=== PATIENT | female | born 1980 | race Two or more races ===

== ENCOUNTER 2020-08-11 11:42 | Outpatient (REF) | payer MEDICAID, SELFPAY | END 2020-08-11 11:43 | disposition home or self-care (01) | LOC: HO.LAB 11:42 | PROVIDERS: Visit Provider Internal Medicine | DX: Z20.822 Contact with and (suspected) exposure to COVID-19 (principal) | CPT/HCPCS: 36415; C9803; U0003; U0005 ==

== ENCOUNTER 2022-05-17 14:59 | Emergency (ER) | payer OTHER, MEDICAID, SELFPAY ==
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
[2022-05-17 15:48] VITALS: BP 146/80; PULSE 74; RESP 18; TEMP 36.4; O2SAT 98; BMI 32.9
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
[2022-05-17] MEDS: Ketorolac Tromethamine 15 MG/ML VIAL IM (17:23)
[2022-05-17] MEDS: Cyclobenzaprine HCl 5 MG TABLET PO (17:23)
== END 2022-05-17 17:36 | disposition home or self-care (01) ==
PROVIDERS: Emergency Provider Emergency Medicine Emergency Medical Services
DX: M54.2 Cervicalgia (principal); R51.9 Headache, unspecified; M54.6 Pain in thoracic spine; M54.50 Low back pain, unspecified
CPT/HCPCS: 70450; 72070; 72100; 72125; 96372; 99283; 99284; J1885

== ENCOUNTER 2023-01-27 11:54 | Emergency (ER) | payer OTHER, SELFPAY ==
[2023-01-27 12:14] VITALS: BP 155/107; PULSE 77; RESP 18; TEMP 36.8; O2SAT 99; BMI 33.3
--- NOTE | 2023-01-27 12:14 | ECG_ITS ---
Test Reason : L ARM PAIN Blood Pressure : / mmHG Vent. Rate : 067 BPM Atrial Rate : 067 BPM P-R Int : 146 ms QRS Dur : 078 ms QT Int : 392 ms P-R-T Axes : 063 042 026 degrees QTc Int : 414 ms Normal sinus rhythm Normal ECG No previous ECGs available Referred By: Elvia Campo Electronically Signed By:AILYN PRIEOT MD
--- NOTE | 2023-01-27 12:14 | ED.SKABFB ---
HPI - Skin/Abscess/Foreign Bdy General Chief complaint: General Medical Stated complaint: L Side Pain No Injury Related Data Previous Rx's Medication Instructions Recorded cyclobenzaprine 5 mg tablet 5 mg PO TID PRN neck pain 7 days 05/17/22 #21 tabs ibuprofen 600 mg tablet 600 mg PO Q8H PRN pain #30 tabs 01/28/23 Allergies Allergy/AdvReac Type Severity Reaction Status Date / Time No Known Allergies Allergy Verified 05/17/22 15:51 PMFSH Social History Social History Advance Directives: No Advance Directives Information Provided: Yes Physical Exam Vital Signs: Vital Signs: Last Vital Signs Temp 98.3 F 01/27/23 12:14 Pulse 77 01/27/23 12:14 Resp 18 01/27/23 12:14 BP 155/107 H 01/27/23 12:14 Pulse Ox 99 01/27/23 12:14 O2 Del Method Room Air 01/27/23 12:14 BMI result Body Mass Index 33.3 Course Course Course Narrative: RME: 42yo F w/PMHx breast CA s/p radiation c/o painful L breast lump x 1 week. Admits had outpatient US at [facility] which was unremarkable last week, however, w/worsening pain radiating to L arm and back. State she was not given a Dx last week EKG ordered Area not evaluated in triage Full HPI, ROS and PE to be performed by primary ED provider. Discharge Plan Discharge Clinical Impression: Pain in scapula Patient Disposition: Elopement Prescriptions: No Action cyclobenzaprine 5 mg tablet 5 mg PO TID PRN (Reason: neck pain) 7 Days Qty: 21 0RF ibuprofen 600 mg tablet 600 mg PO Q8H PRN (Reason: pain) Qty: 30 0RF Interventions: ED Discharge Assessment Last Done: 01/27/23 20:01 Discharge Date/Time: 01/27/23 20:32
== END 2023-01-27 20:32 | disposition left against medical advice (07) ==
LOC: HO.ED 20:10
PROVIDERS: Emergency Provider Emergency Medicine
DX: M25.512 Pain in left shoulder (principal); Z85.3 Personal history of malignant neoplasm of breast
CPT/HCPCS: 93005; 99283

== ENCOUNTER → 2023-01-27 12:14 | Outpatient (BNV) | payer OTHER, SELFPAY | PROVIDERS: Visit Provider Internal Medicine Cardiovascular Disease | DX: M79.602 Pain in left arm (principal) | CPT/HCPCS: 93010 ==

== ENCOUNTER 2023-01-28 09:02 | Emergency (ER) | payer OTHER, SELFPAY ==
--- NOTE | ~2023-01-28 | CT_ITS ---
EXAMINATION: CT ANGIOGRAM OF THE CHEST WITH AND WITHOUT CONTRAST (CT PULMONARY ANGIOGRAM FOR PE) CLINICAL INFORMATION: Rule out pulmonary embolus. COMPARISON: None available. TECHNIQUE: Prior to contrast administration, noncontrast localization images were obtained. Subsequently, multidetector volumetric imaging was performed from the thoracic inlet to below the diaphragms following the administration of 65 mL Omnipaque 350 intravenous contrast. No contrast reaction reported Sagittal, coronal, and MIP oblique sagittal reformatted images were obtained on the CT workstation, uploaded to PACS, and reviewed. This CT examination was performed using dose optimization techniques as appropriate, variously including the following: *Automated exposure control *Adjustment of mA and/or kV according to patient size (this includes techniques or standardized protocols for targeted exams where dose is matched to indication/reason for exam; i.e. extremities or head) *Use of iterative reconstruction technique Total exam dose-length product: 278 mGy-cm FINDINGS: QUALITY OF STUDY/CONTRAST BOLUS: Satisfactory. PULMONARY ARTERIES: No pulmonary emboli. THORACIC AORTA: No aneurysm. LUNG: There is minimal lingular scarring or subsegmental atelectasis. The lungs are otherwise clear. PLEURA: No pleural effusion or pneumothorax. MEDIASTINUM: Normal heart size. No pericardial effusion. No hilar or mediastinal lymphadenopathy. No evidence of septal bowing or right heart strain. CORONARY ARTERY CALCIFICATION: None visualized on this study. CHEST WALL/AXILLA: No axillary or internal mammary lymphadenopathy. OSSEOUS STRUCTURES: No acute or suspicious osseous abnormality. UPPER ABDOMEN: Unremarkable. No reflux of contrast into the hepatic veins to suggest elevated right heart pressures. CT/CT angio chest PE protocol IMPRESSION: No evidence for pulmonary embolism. No active cardiopulmonary disease. VTE: negative
--- NOTE | ~2023-01-28 | XR_ITS ---
EXAMINATION: XR CHEST CLINICAL INFORMATION: Chest pain COMPARISON: None available. TECHNIQUE: 2 views of the chest were obtained. FINDINGS: No significant abnormality is noted involving the heart, lungs, mediastinum, bony thorax or soft tissues. XR/XR chest 2V IMPRESSION: Unremarkable examination.
--- NOTE | 2023-01-28 09:04 | ECG_ITS ---
Test Reason : cp Blood Pressure : / mmHG Vent. Rate : 069 BPM Atrial Rate : 069 BPM P-R Int : 140 ms QRS Dur : 080 ms QT Int : 390 ms P-R-T Axes : 038 023 017 degrees QTc Int : 417 ms Normal sinus rhythm Cannot rule out Anterior infarct , age undetermined Abnormal ECG When compared with ECG of 27-JAN-2023 12:31, No significant change was found Referred By: Generic ED Physician Electronically Signed By:PAULA OCHOA
[2023-01-28 09:12] VITALS: BP 139/87; PULSE 68; RESP 18; TEMP 36.7; O2SAT 98; BMI 35.9
[2023-01-28 09:25] LABS: MANUAL DIFF FLAG NO
[2023-01-28 09:26] LABS: Basophils Percent Auto 0.5 % (0-2); Eosinophils Absolute Auto 0.4 X10*3/uL (0.0-0.4); Eosinophils Percent Auto 4.6 % (0-4); Hematocrit 43.4 % (37.0-47.0); Hemoglobin 14.5 g/dl (12.0-16.0); Imm Gran Abs Auto 0.03 X10*3/uL (0.00-0.03); Imm Gran Pct Auto 0.4 % (0.0-0.4); Lymphocytes Absolute Auto 1.5 X10*3/uL (1.2-4.9); Lymphocytes Percent Auto 17.8 % (20-40); Mean Corpuscular HGB Conc 33.4 g/dl (31.0-35.0); Mean Corpuscular Hemoglobin 31.4 pg (27.0-33.0); Mean Corpuscular Volume 93.9 fL (80.0-98.0); Mean Platelet Volume 8.3 fL (9.4-12.3); Monocytes Absolute Auto 0.6 X10*3/uL (0.1-1.2); Monocytes Percent Auto 7.5 % (2-11); Neutrophils Absolute Auto 5.8 x10*3/uL (2.0-8.3); Neutrophils Percent Auto 69.2 % (45-73); Platelet Count 338 X10*3/uL (160-400); Red Blood Count 4.62 X10*6/uL (4.20-5.50); Red Cell Distribution Width 11.9 % (11.0-16.0); White Blood Count 8.4 X10*3/uL (4.8-10.8)
[2023-01-28 09:42] LABS: Anion Gap 11 (12-20); Blood Urea Nitrogen 14 mg/dL (9-16); Calcium 9.9 mg/dL (8.4-10.2); Carbon Dioxide 27 mmol/L (22-29); Chloride 104 mmol/L (96-108); Creatinine Clr Calc Pharmacy 87.9; Estimated Glomerular Filt Rate > 60; Glucose Random 110 mg/dL (60-115); Sodium 138 mmol/L (135-145)
[2023-01-28 09:52] LABS: Troponin-I High Sensitivity 4.1 ng/L (<3.5-17.0)
--- NOTE | 2023-01-28 11:15 | ED_ITS ---
HPI - Chest Pain General Chief Complaint: Chest Pain Stated Complaint: stabbing L side chest pain Time Seen by Provider: 01/28/23 13:41 Source: patient, RN notes reviewed and old records reviewed Mode of arrival: ambulatory Limitations: no limitations History of Present Illness HPI narrative: 42 year old female w/ pmhx significant for Breast CA not currently on chemo presents to the ED complaining of stabbing left mid back pain that radiates around to left axillary region x 1 mos. Admits pain worse with movement, lying, and deep breathing. Denies any relieving factors, fever, chills, nausea, vomiting, dizziness, & chest pain. She is currently nicotine dependent. She states she followed up w/ her oncologist recently & had ultrasound and recent mammogram & was told the pain wasn't breast related, and was more likely to be infectious in origin. denies nipple discharge, bleeding, palpable lump Related Data Previous Rx's Medication Instructions Recorded cyclobenzaprine 5 mg tablet 5 mg PO TID PRN neck pain 7 days 05/17/22 #21 tabs ibuprofen 600 mg tablet 600 mg PO Q8H PRN pain #30 tabs 01/28/23 Allergies Allergy/AdvReac Type Severity Reaction Status Date / Time No Known Allergies Allergy Verified 05/17/22 15:51 Review of Systems Review of Systems: Constitutional: No Fever, No Chills, No Fatigue, ENT/Mouth: No Hearing loss, No Ear Pain, No Nasal Congestion, No Sinus Pain, No Hoarseness, No sore throat, Eyes: No Eye Pain, No Swelling, No Redness Cardiovascular: (+) SOB, No Chest Pain, No Dyspnea on Exertion, No Orthopnea, No Palpitations Respiratory: (+) Cough, No Sputum, No Dyspnea Gastrointestinal: No Nausea, No Vomiting, No Diarrhea, No Constipation, No abdominal pain Genitourinary: No irregular bleeding, No Dysuria, No Urinary Frequency, No Hematuria Musculoskeletal: (+) pain to the left scapular area, (+) Left axilla pain Skin/breast: No Skin Lesions, No rash, No breast pain, No nipple discharge, No breast lumps, No breast swelling Neuro: (+) Headache, No Weakness, NNo Dizziness Yes all other systems are reviewed and are negative Constitutional: Constitutional: Reports as per [facility] Past Medical History Attestation statement: The following information was validated with the patient. Source: old records reviewed Social History Social History Advance Directives: No Advance Directives Information Provided: Yes Physical Exam Vital Signs: Vital Signs: Last Vital Signs Temp 98.8 F 01/28/23 14:58 Pulse 62 01/28/23 14:58 Resp 18 01/28/23 14:58 BP 151/89 H 01/28/23 14:58 Pulse Ox 100 01/28/23 14:58 O2 Del Method Room Air 01/28/23 14:58 BMI result Body Mass Index 35.9 Const: General: cooperative, healthy appearing, no acute distress and alert Orientation/consciousness: patient oriented x3 Limitations: no limitations HEENT: Head: Yes normal to inspection and Yes atraumatic Ears: hearing grossly normal bilaterally General nose exam: Normal external nose present Face and sinus: Yes normal facial exam Eyes: General: appearance normal, both eyes and all related structures Pupils: Equal, round and reactive pupils present EOM: EOMs intact bilaterally Neck: Neck: Yes normal visual inspection and Yes no meningeal signs Chest: Chest palpation & inspection: normal inspection of the chest (Old scars from prior breast surgery present), normal palpation of entire chest wall, no cr epitus, no masses, no sinus tracts, no tenderness and No rash Breast/axilla palpation: no axillary lymphadenopathy Resp: Effort & Inspection: normal respiratory effort and no respiratory distress Auscultation: clear to auscultation bilaterally and no wheezes Cardio: Rate: regular rate Heart sounds: S1 normal heart sound present and S2 normal heart sound present GI: Inspection: Yes normal to inspection Palpation (GI): Soft to palpation, nontender, no guarding and not rigid : General: Yes no CVA tenderness Back/Spine/Pelvis: Other: No midline cervical/thoracic/lumbar spinous tenderness/step-off or deformity. + reproducible tenderness to left scapular region extending to left lateral ribs. No ecchymosis/ erythema or flail chest. No rash Back: no CVA tenderness Skin: Rashes: no rashes Wounds: no wounds Neuro: General: patient oriented x3, tone normal and no meningeal signs Cranial nerves: Yes CN's II-XII intact bilaterally and Yes Equal, round and reactive pupils present Gait exam (Neuro): Normal gait present Extrem: General: Yes normal to inspection, Yes no pedal edema and Yes no calf tenderness Course Course Course Narrative: This is an RME: Additional HPI, ROS, PE not included below will be deferred to primary provider. 42 yo f hx of breast cancer s/p radiation presents w/ substernal cp w/ radiation to back worse w/ deep breathing. Reports grandfather had some cardiac hx unclear what however. No hx of sudden cardiac in family. Denies n/v/, tingling, numbness, abd pain Plan- labs, xray, dimer ( although patient is perc negative hx of breast cancer risk factor) - labs including troponin and D-dimer WNL. > Patient high risk will obtain CTA to rule out PE - chest x-ray unremarkable -1630-- ED care transferred to [facility] pending CTA and dispo per results Reevaluation(s) Reevaluation #1: CT/CT angio chest PE protocol IMPRESSION: No evidence for pulmonary embolism. ? No active cardiopulmonary disease. Pain at this time likely musculoskeletal in nature, discussed use of acetaminophen/ibuprofen and it addition to topical lidocaine. Advised outpatient follow-up with PCP within 1-3 days. Reviewed worrisome signs and symptoms that would warrant re-evaluation in the emergency department. All questions answered. Stable for discharge. Time: 18:03 Medications Administered Discontinued Medications Generic Name Dose Route Start Last Admin Trade Name Freq PRN Reason Stop Dose Admin Sodium Chloride 1,000 mls @ 999 mls/hr 01/28/23 15:00 01/28/23 14:57 Ns IV 01/28/23 16:00 999 mls/hr .Q1H1M ROSS Administration Iohexol 100 ml 01/28/23 16:28 01/28/23 16:28 Iohexol 350 Mg/Ml 100 Ml Infus..Btl IV 01/28/23 16:29 65 ml ONCE ONE Administration Ketorolac Tromethamine 15 mg 01/28/23 14:49 01/28/23 14:55 Ketorolac Tromethamine 15 Mg/Ml Vial IVPUSH 01/28/23 14:50 15 mg ONCE ONE Administration Medical Decision Making Medical Decision Making MDM Narrative: 42 year old female w/ pmhx significant for Breast CA not currently on chemo presents to the ED complaining of stabbing left mid back pain that radiates around to left axillary region x 1 mos. On exam VSS, NAD, PE as above, lungs CTA, pain reproducible without evidence of deformity or flail chest/rash.. Given her history of Breast Ca and nicotine dependence concern for PE vs MSK pain vs ?PNA. Unlikely ACS with duration of her symptoms. lower suspicion for pancreatitis, hepatobilliary condition, or aortic dissection. Plan: labs, x-ray, EKG, CTA, pain management Please refer to course for remaining clinical decision making, interpretation of labs/imaging results, and discussions with consultants and/or family members. Differential Diagnosis Differential Diagnoses: The differential diagnosis associated with the presentation includes As above Admission/Observation Consideration of admission/observation: Escalation of care including admission/observation considered Lab Data MDM Lab Attestation statement: I reviewed the patient's lab results. 01/28/23 09:19 01/28/23 09:19 Labs: Lab Results 01/28/23 01/28/23 01/28/23 Range/Units 09:19 09:19 09:19 WBC 8.4 (4.8-10.8) X10*3/uL RBC 4.62 (4.20-5.50) X10*6/uL Hgb 14.5 (12.0-16.0) g/dl Hct 43.4 (37.0-47.0) % MCV 93.9 (80.0-98.0) fL MCH 31.4 (27.0-33.0) pg MCHC 33.4 (31.0-35.0) g/dl RDW 11.9 (11.0-16.0) % Plt Count 338 (160-400) X10*3/uL MPV 8.3 L (9.4-12.3) fL Immature Gran % (Auto) 0.4 (0.0-0.4) % Neut % (Auto) 69.2 (45-73) % Lymph % (Auto) 17.8 L (20-40) % [place] % (Auto) 7.5 (2-11) % Eos % (Auto) 4.6 H (0-4) % Baso % (Auto) 0.5 (0-2) % Lymph # (Auto) 1.5 (1.2-4.9) X10*3/uL [place] # (Auto) 0.6 (0.1-1.2) X10*3/uL Eos # (Auto) 0.4 (0.0-0.4) X10*3/uL Baso # (Auto) 0.0 (0.0-0.2) X10*3/uL Abs Immat Gran (auto) 0.03 (0.00-0.03) X10*3/uL Absolute Neuts (auto) 5.8 (2.0-8.3) x10*3/uL Absolute Nucleated RBC 0.000 (0.0-0.012) X10*3/uL Nucleated RBC % (auto) 0.0 (0.0-0.2) /100WBC D-Dimer High Sensitivty NG/ML Sodium 138 (135-145) mmol/L Potassium 4.0 (3.3-5.1) mmol/L Chloride 104 (96-108) mmol/L Carbon Dioxide 27 (22-29) mmol/L Anion Gap 11 L (12-20) BUN 14 (9-16) mg/dL Creatinine 0.84 (0.5-1.4) mg/dL Estim Creat Clear Calc 87.9 Estimated GFR > 60 Random Glucose 110 (60-115) mg/dL Calcium 9.9 (8.4-10.2) mg/dL Total Bilirubin 0.4 (0.0-1.0) mg/dL Direct Bilirubin 0.2 (0.0-0.5) mg/dL AST 29 (5-31) U/L ALT 33 H (0-31) U/L Alkaline Phosphatase 63 (39-117) U/L Troponin I High Sens 4.1 (<3.5-17.0) ng/L Total Protein 8.3 H (6.5-8.0) g/dL Albumin 4.2 (3.5-5.0) g/dL Lipase 23 (8-78) U/L 01/28/23 01/28/23 Range/Units 12:01 12:01 WBC (4.8-10.8) X10*3/uL RBC (4.20-5.50) X10*6/uL Hgb (12.0-16.0) g/dl Hct (37.0-47.0) % MCV (80.0-98.0) fL MCH (27.0-33.0) pg MCHC (31.0-35.0) g/dl RDW (11.0-16.0) % Plt Count (160-400) X10*3/uL MPV (9.4-12.3) fL Immature Gran % (Auto) (0.0-0.4) % Neut % (Auto) (45-73) % Lymph % (Auto) (20-40) % [place] % (Auto) (2-11) % Eos % (Auto) (0-4) % Baso % (Auto) (0-2) % Lymph # (Auto) (1.2-4.9) X10*3/uL [place] # (Auto) (0.1-1.2) X10*3/uL Eos # (Auto) (0.0-0.4) X10*3/uL Baso # (Auto) (0.0-0.2) X10*3/uL Abs Immat Gran (auto) (0.00-0.03) X10*3/uL Absolute Neuts (auto) (2.0-8.3) x10*3/uL Absolute Nucleated RBC (0.0-0.012) X10*3/uL Nucleated RBC % (auto) (0.0-0.2) /100WBC D-Dimer High Sensitivty < 150 NG/ML Sodium (135-145) mmol/L Potassium (3.3-5.1) mmol/L Chloride (96-108) mmol/L Carbon Dioxide (22-29) mmol/L Anion Gap (12-20) BUN (9-16) mg/dL Creatinine (0.5-1.4) mg/dL Estim Creat Clear Calc Estimated GFR Random Glucose (60-115) mg/dL Calcium (8.4-10.2) mg/dL Total Bilirubin (0.0-1.0) mg/dL Direct Bilirubin (0.0-0.5) mg/dL AST (5-31) U/L ALT (0-31) U/L Alkaline Phosphatase (39-117) U/L Troponin I High Sens < 2.7 (<3.5-17.0) ng/L Total Protein (6.5-8.0) g/dL Albumin (3.5-5.0) g/dL Lipase (8-78) U/L Independent Interpretation I performed an independent interpretation of an: EKG ( EKG normal sinus rhythm at a rate of 69. QRS 80. QTC 417. No significant change when compared to prior) Radiology Impression Discussion of test interpretation with radiology: I have reviewed the radiologist's reading. External Record Review External record reviewed: Inpatient record, Office record, Outpatient record, Prior outpatient labs, Prior outpatient radiology, Primary care record and Outside ED record Tests considered The following testing was considered but not selected: As above Prescription Management I considered prescription management with: Pain Medication Chronic Conditions Patient?s care impacted by: Cancer Discharge Plan Discharge Clinical Impression: Pain of left scapula, SOB (shortness of breath) Patient Disposition: Home, Self-Care Additional Instructions: You can take ibuprofen 200 mg, 3 tablets (600mg) every 6-8 hours as needed for pain, in addition to Tylenol 500 mg, 2 tablets (1,000mg) every 4-6 hours as needed for pain, but not to exceed 3 doses daily (3,000mg).? Please contact your primary care provider and arrange for a follow-up visit within 1-3 days. You may return back to the emergency department any new or worsening symptoms or concerns. Prescriptions: New ibuprofen 600 mg tablet 600 mg PO Q8H PRN (Reason: pain) Qty: 30 0RF No Action cyclobenzaprine 5 mg tablet 5 mg PO TID PRN (Reason: neck pain) 7 Days Qty: 21 0RF Referrals: Physician,Unknown J [Primary Care Provider] -
[2023-01-28 12:22] LABS: D Dimer High Sensitivity < 150 NG/ML
[2023-01-28 12:26] LABS: Troponin-I High Sensitivity < 2.7 ng/L (<3.5-17.0)
[2023-01-28] MEDS: Ketorolac Tromethamine 15 MG/ML VIAL IVPUSH (14:55)
[2023-01-28] MEDS: 0.9 % Sodium Chloride 1,000 ML 999 ML IV (14:57)
[2023-01-28 14:58] VITALS: BP 151/89; PULSE 62; RESP 18; TEMP 37.1; O2SAT 100
[2023-01-28 15:12] LABS: Alanine Aminotransferase 33 U/L (0-31); Albumin Level 4.2 g/dL (3.5-5.0); Alkaline Phosphatase 63 U/L (39-117); Aspartate Amino Transferase 29 U/L (5-31); Bilirubin Direct 0.2 mg/dL (0.0-0.5); Bilirubin Total 0.4 mg/dL (0.0-1.0); Lipase 23 U/L (8-78); Total Protein 8.3 g/dL (6.5-8.0)
[2023-01-28] MEDS: iohexoL 350 MG/ML 100 ML INFUS..BTL IV (16:28)
== END 2023-01-28 18:21 | disposition home or self-care (01) ==
PROVIDERS: Physician Assistant; Emergency Provider Student in an Organized Health Care Education/Training Program
DX: M25.512 Pain in left shoulder (principal); R06.02 Shortness of breath; C50.919 Malignant neoplasm of unspecified site of unspecified female breast; F17.200 Nicotine dependence, unspecified, uncomplicated; Z79.899 Other long term (current) drug therapy
CPT/HCPCS: 36415; 71046; 71275; 80048; 80076; 83690; 84484; 85025; 85379; 93005; 96374; 99284; 99285; J1885; Q9967